=== PATIENT | female | born 1955 | race Caucasian/White ===

== ENCOUNTER 2021-01-14 10:36 | Emergency (ER) | payer MEDICARE, OTHER, SELFPAY ==
[2021-01-14 10:45] VITALS: BP 123/80; PULSE 108; RESP 16; TEMP 37.6; O2SAT 99
--- NOTE | 2021-01-14 11:09 | ED.URI ---
HPI - URI/Sore Throat General Chief Complaint: Upper Respiratory Infection Stated Complaint: COUGH/SORE THROAT Source: patient and RN notes reviewed Limitations: no limitations History of Present Illness HPI Narrative: The vaccinated patient, a non-smoker/nondrinker, presents with sore throat. Patient states she has a shorter couple day history of definite sore throat, mildly hoarse voice, and scant cough. She attributes onset from unwell grandchildren. No earache, congestion, fever measured, sputum changes; no CP, loss of taste/smell, S OB, vomiting/diarrhea Related Data Allergies Allergy/AdvReac Type Severity Reaction Status Date / Time morphine AdvReac Severe Vomiting Verified 07/07/19 20:15 Review of Systems Review of Systems: Narrative: General/Constitutional: No weight loss,fever Eyes: N0: Redness,discharge Ears/Nose/Throat: No: Epistaxis,ear discharge Respiratory: Denies: Hemoptysis Gastrointestinal: No Vomiting, Bleeding-rectal Skin: No Lumps, eruption Neurologic: No Focal Weakness,Sz Hematologic: Denies: Petechiae/Purpura Psychiatric: No: Suicida ideationl All Other Systems: Reviewed and Negative PMFSH Past Medical History Medical History (Updated 01/14/21 @ 12:44 by Cam Castillo MD) Left wrist fracture Surgical History Surgical History (Updated 07/07/19 @ 20:38 by Jailyn Oropeza) H/O left wrist surgery left wrist Fx repair with hardware Hx of tonsillectomy Social History Social History Smoking status: Never smoker Alcohol intake: never Gender identity (if verbalized by the patient): Female Comments At time of signature, agree with nursing past medical, surgical, social and family history. There is no relevant family history pertinent to the presenting complaint Exam Narrative: Exam Narrative: General Appearance: Well appearing, Well nourished EYE: PERRLA, Conjunctiva clear Ears: Auditory canal normal, TM normal Nose: Rhinorrhea, Mucousal erythema Mouth/Throat: MM moist, Uvula midline, Pharyngeal erythema Neck: Supple, No adenopathy Respiratory: No respiratory distress, Breath sounds equal, Clear to auscultation Cardiovascular: RRR, No JVD Musculoskeletal: Non tender, Normal strength Skin: Warm, Dry Neurological: A&O x3, CN II-XII intact Psychiatric: Normal mood, Normal affect Course Vital Signs Vital signs: Vital Signs Temperature 99.7 F H 01/14/21 10:45 Pulse Rate 108 H 01/14/21 10:45 Respiratory Rate 16 01/14/21 10:45 Blood Pressure 123/80 01/14/21 10:45 Pulse Oximetry 99 01/14/21 10:45 Temperature 99.7 F H 01/14/21 10:45 Pulse Rate 108 H 01/14/21 10:45 Respiratory Rate 16 01/14/21 10:45 Blood Pressure 123/80 01/14/21 10:45 Pulse Oximetry 99 01/14/21 10:45 Discharge Plan Discharge Clinical Impression: Upper respiratory infection Qualifiers: URI type: unspecified URI Qualified Code(s): J06.9 - Acute upper respiratory infection, unspecified Patient Disposition: Home, Self-Care Condition: Stable Instructions: Pharyngitis (ED) Prescriptions: New lidocaine HCl [Lidocaine Viscous] 2 % solution 5 ml MUCOUS MEM QID PRN (Reason: pain) Qty: 100 RF: 0 benzonatate [Tessalon Perles] 100 mg capsule 100 mg PO TID Qty: 20 RF: 1 azithromycin 250 mg tablet See Rx Instructions .ROUTE .COMPLEX Qty: 6 RF: 0 No Action ibuprofen [IBU] 600 mg tablet 600 mg PO Q6H PRN (Reason: pain) Qty: 20 RF: 0 Other Ambulatory Orders: SARS-CoV-2 RNA, Qual RT-PCR (Routine) Location: Determined by Patient Ordered By: Cam Castillo Follow-up/Referrals: Migue Carter MD [Primary Care Provider] -
== END 2021-01-14 11:18 | disposition home or self-care (01) ==
PROVIDERS: Emergency Provider Emergency Medicine; PCP Emergency Medicine
DX: J06.9 Acute upper respiratory infection, unspecified (principal)
CPT/HCPCS: 99213; G0463

== ENCOUNTER → 2021-01-17 06:32 | Outpatient (CLI) | payer MEDICARE, SELFPAY ==
[2021-01-18 13:49] LABS: SARS-CoV-2 RNA PCR Negative
== END ==
PROVIDERS: PCP Emergency Medicine; Visit Provider Emergency Medicine
DX: Z20.822 Contact with and (suspected) exposure to COVID-19 (principal); R09.89 Other specified symptoms and signs involving the circulatory and respiratory systems
CPT/HCPCS: C9803; U0003; U0005

== ENCOUNTER 2021-03-19 08:05 | Outpatient (CLI) | payer MEDICARE, SELFPAY ==
--- NOTE | ~2021-03-19 | MM_ITS ---
EXAMINATION: MM screening [facility] BI w aren HISTORY: Screening mammogram TECHNIQUE: Craniocaudal and mediolateral oblique 3-D tomosynthesis images were obtained and synthetic 2-D images were generated. CAD analysis was submitted and interpreted. COMPARISON: 07/20/2019, 07/14/2018, 07/12/2017 BREAST PARENCHYMAL COMPOSITION: There are scattered areas of fibroglandular density. FINDINGS: There is no evidence of suspicious mass, calcification, or architectural distortion to sugg est malignancy in either breast. There has been no suspicious interval change. IMPRESSION: 1. No mammographic evidence of malignancy. 2. Recommend routine screening mammography in one year. BI-RADS Category 1: Negative Reviewed, dictated and finalized at location A.
== END 2021-03-19 08:06 | disposition home or self-care (01) ==
LOC: ANHIMG 08:08
PROVIDERS: PCP Emergency Medicine; Visit Provider Emergency Medicine
DX: Z12.31 Encounter for screening mammogram for malignant neoplasm of breast (principal)
CPT/HCPCS: 77063; 77067

== ENCOUNTER 2022-01-13 20:31 | Emergency (ER) | payer MEDICARE, SELFPAY ==
--- NOTE | ~2022-01-13 | XR_ITS ---
EXAM: XR hip LT 2V w AP pelvis DATE: 01/13/2022 21:32 HISTORY: animal bite TODAY TO LT SIDE, BRUISING/ SWELLING/ PUNCTURES . COMPARISON: None available. FINDINGS: Normal mineralization. No fracture or dislocation. No lytic or blastic lesion. Mild bilate ral hip osteoarthritis. No erosion or periosteal change. Soft tissues within normal limits. IMPRESSION: No acute osseous finding in the pelvis or left hip. Reviewed, dictated and finalized at location K.
[2022-01-13 20:34] VITALS: BP 166/98; PULSE 96; RESP 18; TEMP 36.4; O2SAT 100
--- NOTE | 2022-01-13 21:41 | ED.ANIMALBIT ---
HPI - Animal Bite General Chief Complaint: Animal Bite Stated Complaint: dog bite Time Seen by Provider: 01/13/22 21:12 Source: RN notes reviewed History of Present Illness HPI narrative: Patient presents emergency department from home for animal bite. Patient states she was at a friend's house today's seen and some recent puppies were born this year and they over the mother came out and bit the patient several times in the left hip and the left lower abdomen. Per the patient the dog was not up-to-date on its shots but is owned by her friend she states she went home and took a hot bath but continued some pain and bruising came for further evaluation denies any fevers or chills numbness or tingling extremities or any other symptoms unsure of last tetanus shot Related Data Allergies Allergy/AdvReac Type Severity Reaction Status Date / Time morphine AdvReac Severe Vomiting Verified 07/07/19 20:15 Review of Systems Review of Systems: Gen.: Denies fevers or chills Musculoskeletal: Reports left thigh pain Neuro: Denies numbness, tingling, weakness Skin: See HPI Endo: Denies DM PMFSH Past Medical History Medical History Left wrist fracture Surgical History Surgical History (Updated 07/07/19 @ 20:38 by Jailyn Oropeza) H/O left wrist surgery left wrist Fx repair with hardware Hx of tonsillectomy Social History Social History Smoking status: Never smoker Alcohol intake: never Gender identity (if verbalized by the patient): Female Course Course Emergency Course: Discussed with patient as well as charge nursing staff patient will contact animal control tomorrow so the dog may be monitored for rabies we will hold rabies vaccine at this time as the dog whereabouts are known as a dog does live with her friend. Also sent to infectious control nurse Discussed with patient results of workup and diagnosis. Discussed need for follow-up with primary care, proper use of medication, and reasons to return to the emergency department. Patient understands and agrees to current treatment plan Vital Signs Vital signs: Vital Signs Temperature 97.6 F 01/13/22 20:34 Pulse Rate 96 01/13/22 20:34 Respiratory Rate 18 06/22/22 20:34 Blood Pressure 166/98 H 01/13/22 20:34 Pulse Oximetry 100 01/13/22 20:34 Oxygen Delivery Room Air 01/13/22 20:34 Temperature 97.6 F 01/13/22 20:34 Pulse Rate 96 01/13/22 20:34 Respiratory Rate 18 01/13/22 20:34 Blood Pressure 166/98 H 01/13/22 20:34 Pulse Oximetry 100 01/13/22 20:34 Oxygen Delivery Room Air 01/13/22 20:34 MDM - Animal Bite Imaging Data Radiologist's impression: ITS Impressions Hip/Pelvis X-Ray 01/13/22 21:44 IMPRESSION: No acute osseous finding in the pelvis or left hip. Discharge Plan Discharge Clinical Impression: Dog bite Patient Disposition: Home, Self-Care Condition: Stable Instructions: Antibiotic Form, Animal Bite (ED) Additional Instructions: Return for increasing pain numbness or tingling in extremities or any other symptoms or concern. You can contact your local animal control tomorrow to have them evaluate the dog that bit you and monitor for rabies Prescriptions: New amoxicillin-pot clavulanate 875-125 mg tablet 1 tablet PO Q12H Qty: 14 0RF ibuprofen [IBU] 600 mg tablet 600 mg PO Q6H PRN (Reason: pain) Qty: 20 0RF No Action lidocaine HCl [Lidocaine Viscous] 2 % solution 5 ml MUCOUS MEM QID PRN (Reason: pain) Qty: 100 0RF Rx Instructions: Gargle and spit benzonatate [Tessalon Perles] 100 mg capsule 100 mg PO TID Qty: 20 1RF azithromycin 250 mg tablet See Rx Instructions .ROUTE .COMPLEX Qty: 6 0RF Rx Instructions: take 500 mg today (day 1), then 250 mg for 4 days (days 2-5) ibuprofen [IBU] 600 mg tablet 600 mg PO Q6H PRN (Reas
[2022-01-13] MEDS: TETANUS,DIPHTHERIA,AC PERTUSSIS ADULT (0.5 ML) BOOSTRIX IM (22:06)
[2022-01-13] MEDS: ACETAMINOPHEN 500 MG TABLET 1000 MG PO (22:06)
[2022-01-13] MEDS: AMOXICILLIN/CLAVULANATE K 875-125 MG TAB 1 TABLET PO (22:07)
== END 2022-01-13 22:15 | disposition home or self-care (01) ==
PROVIDERS: Emergency Provider Emergency Medicine; PCP Emergency Medicine
DX: S71.052A Open bite, left hip, initial encounter (principal); S31.159A Open bite of abdominal wall, unspecified quadrant without penetration into peritoneal cavity, initial encounter; W54.0XXA Bitten by dog, initial encounter; Z23 Encounter for immunization
CPT/HCPCS: 73502; 90471; 90715; 99283; A9270

== ENCOUNTER 2022-05-31 07:41 | Outpatient (CLI) | payer MEDICARE, SELFPAY ==
--- NOTE | ~2022-05-31 | MM_ITS ---
EXAMINATION: MM screening [facility] BI w aren HISTORY: Screening mammogram TECHNIQUE: Craniocaudal and mediolateral oblique 3-D tomosynthesis images were obtained and synthetic 2-D images were generated. CAD analysis was submitted and interpreted. COMPARISON: 03/19/2021, 07/20/2019, 07/14/2018 bilateral screening mammogram examinations BREAST PARENCHYMAL COMPOSITION: There are scattered areas of fibroglandular density. FINDINGS: There is a biopsy marker in the left breast; history of prior benign left breast biopsy. Th ere is no evidence of suspicious mass, calcification, or architectural distortion to suggest malignan cy in either breast. There has been no suspicious interval change. IMPRESSION: 1. No mammographic evidence of malignancy. 2. Recommend routine screening mammography in one year. BI-RADS Category 1: Negative Reviewed, dictated and finalized at location A. HEALTH PROVIDER
== END 2022-05-31 07:42 | disposition home or self-care (01) ==
LOC: ANHIMG 07:43
PROVIDERS: PCP Emergency Medicine; Visit Provider Emergency Medicine
DX: Z12.31 Encounter for screening mammogram for malignant neoplasm of breast (principal)
CPT/HCPCS: 77063; 77067

== ENCOUNTER 2022-07-28 12:33 | Outpatient (CLI) | payer MEDICARE, SELFPAY ==
--- NOTE | ~2022-07-28 | DEXA_ITS ---
Bone Density Report Name: SABI GONZALEZ Age: 66 Sex: Female Ethnicity: White Date of : 1955 Indication: postmenopausal; screening for osteoporosis; height loss; Referring Provider: HOLLY BANKS Study: Bone densitometry was performed. Exam Date: July 28, 2022 Accession number: [id number] Bone Density: Region BMD T-score Z-score Classification AP Spine(L1-L4) 0.882 -1.5 0.5 Osteopenia Femoral Neck (Left) 0.755 -0.8 0.9 Normal Total Hip (Left) 0.849 -0.8 0.7 Normal Femoral Neck (Right) 0.790 -0.5 1.2 Normal Total Hip (Right) 0.834 -0.9 0.6 Normal Total Hip Mean 0.841 -0.9 0.7 Normal World Health Organization criteria for BMD impression classify patients as: Normal (T-score at or above -1.0), Osteopenia (T-score between -1.0 and -2.5), or Osteoporosis (T-score at or below -2.5). 10-year Fracture Risk(1): Major Osteoporotic Fracture 8.3% Hip Fracture 0.7% Reported Risk Factors: [place] (), Neck BMD=0.755, BMI=29.0 (1) FRAX(R) Version 3.08. Fracture probability calculated for an untreated patient. Fracture probability may be lower if the patient has received treatment. Clinical Information Provided by Patient: Has used the following medications: Vitamin D Patient maximum height was 66 Menopause Age: 53 Onset of menses at age 11 Number of children 2 Impression: The patient has low bone mass, based on the Total Spine T-score. The patient has an estimated ten-year risk of hip fracture of 0.7% and an estimated ten-year risk of major fracture of 8.3%, based on the WHO FRAX algorithm. Discussion: BONE DENSITY IS LOW AT ONE OR MORE SKELETAL SITES. This patient's lowest T-score is low at one or more skeletal sites. It meets the World Health Organization's (WHO) criteria for ?low bone mass? (T-score between -1.0 and -2.5). The patient's 10-year risk of fracture as calculated by FRAX is less than the threshold where pharmacological therapy is recommended by the National Osteoporosis Foundation (NOF). However, all treatment decisions require clinical judgment and consideration of individual patient factors, including patient preferences, comorbidities, previous drug use, risk factors not captured in the FRAX model (e.g., frailty, falls, vitamin D deficiency, increased bone turnover, interval significant decline in bone density) and possible under or overestimation of fracture risk by FRAX. The patient should follow a healthful lifestyle (good nutrition with adequate calcium and vitamin D, and appropriate weight-bearing exercise). Follow-Up: Consider repeating this study in 2 to 3 years to reassess this patient's status, or sooner if there is some new clinical indication. Reported by: [facility] on 07/28/2022 1:12:00 PM.
== END 2022-07-28 12:34 | disposition home or self-care (01) ==
LOC: ANHIMG 12:34
PROVIDERS: PCP Emergency Medicine; Visit Provider Emergency Medicine
DX: Z78.0 Asymptomatic menopausal state (principal); M85.88 Other specified disorders of bone density and structure, other site
CPT/HCPCS: 77080

== ENCOUNTER 2023-02-24 09:06 | Day surgery (SDC) | payer MEDICARE, SELFPAY ==
[2023-02-09 13:12] VITALS: BMI 28.2
[2023-02-15 14:37] VITALS: BMI 27.7
[2023-02-24 09:28] VITALS: BP 131/89; PULSE 79; RESP 16; O2SAT 99
--- NOTE | 2023-02-24 10:11 | WPDANESEPPF ---
Anes - Initial Pre Proc Eval Procedure: Operation Date: 02/24/23 11:00 Proposed Procedures p Diagnostic Colonoscopy - Anders Witt MD Date/Time: 02/24/23 10:11 Surgeon: Anders Witt MD Pre Op Diagnosis: History of Colon Polyps Patient Data Age: 67 Gender: F Height: 1.68 m Weight: 78 kg Last Vital Signs Pulse 79 02/24/23 09:28 Resp 16 02/24/23 09:28 BP 131/89 02/24/23 09:28 Pulse Ox 99 02/24/23 09:28 O2 Del Method Room Air 02/24/23 09:28 Allergies Allergy/AdvReac Type Severity Reaction Status Date / Time morphine AdvReac Severe Vomiting Verified 02/15/23 14:35 Home Medications Medication Instructions Recorded Confirmed Type No Home Medications 02/15/23 02/15/23 History Patient hx anesthesia problems: none Family hx anesthesia problems: none Results Review: All pre-operative results and documents have been reviewed as part of the pre-operative evaluation. COUNTS INCLUDE 234 BEDS AT THE [facility] Past Medical History Medical History Left wrist fracture Surgical History Surgical History H/O left wrist surgery left wrist Fx repair with hardware Hx of tonsillectomy Social History Social History Smoking status: Never smoker Alcohol intake: never Substance use: never Substance use type: does not use Living arrangements: alone Gender identity (if verbalized by the patient): Female Spiritual care concerns: No Anes - Eval Final PreProcedure Day of Procedure 02/24/23 10:11 Patient weight: normal Heart: regular rate and rhythm Lungs: clear to auscultation Airway: Mallampati scale class II Neurological: alert and oriented Last oral intake: >/= 8 hours ASA classification: II Emergent: no Anesthetic plan: proceed Anesthesia type and monitoring: general GIVS and standard monitoring Results Review: All pre-operative results and documents have been reviewed as part of the pre-operative evaluation. Informed Consent: The patient's anesthetic plan and its attendant risks and benefits were discussed with the patient/family/POA. Questions were solicited and answers provided to the satisfaction of the patient/family/POA.
[2023-02-24] MEDS: LACTATED RINGERS 1,000 ML 150 ML IV CONT (10:21)
--- NOTE | 2023-02-24 10:24 | PM.HPGS ---
History of Present Illness History of Present Illness Consent: Risks, benefits, and alternatives have been discussed and questions answered. Patient agrees to proceed with procedure. Chief complaint: History of Colon Polyps Narrative: Litzy Fay is a 67 year old female with colon polyp 5 years ago Review of Systems Constitutional: Constitutional: Denies headache(s) and Denies weakness Eyes: Eyes: Denies blurry vision ENT: Reports Normal hearing present, Denies headache(s) and Denies neck pain Cardiovascular: Cardiovascular: Denies chest pain and Denies dyspnea Respiratory: Respiratory: Denies dyspnea Gastrointestinal: Gastrointestinal: Reports no additional gastrointestinal complaints Genitourinary: Genitourinary: Denies dysuria Musculoskeletal: Musculoskeletal: Denies neck pain Integumentary/Breasts: Skin/Breast: Denies dry skin Neurologic: Reports Normal hearing present, Denies headache(s) and Denies weakness Psychiatric: Psychiatric: Denies anxiety Endocrine: Endocrine: Denies change in body appearance Hematologic/Lymphatic: Hematologic/Lymphatic: Denies easy bleeding Allergic/Immunologic: Allergic/Immunologic: Denies urticaria PMFSH Past Medical History Medical History (Updated 02/24/23 @ 10:24 by Anders Witt MD) Adenomatous colon polyp Left wrist fracture Surgical History Surgical History H/O left wrist surgery left wrist Fx repair with hardware Hx of tonsillectomy Social History Social History Smoking status: Never smoker Alcohol intake: never Substance use: never Substance use type: does not use Living arrangements: alone Gender identity (if verbalized by the patient): Female Spiritual care concerns: No Meds Home Medications and Allergies Home Medications Medication Instructions Recorded Confirmed Type No Home Medications 02/15/23 02/15/23 History Allergies Allergy/AdvReac Type Severity Reaction Status Date / Time morphine AdvReac Severe Vomiting Verified 02/15/23 14:35 Vital Signs Vital Signs - 24 hr 02/24/23 09:28 Pulse Rate 79 Respiratory Rate 16 Blood Pressure 131/89 Pulse Oximetry 99 Oxygen Delivery Room Air Exam Const: General: comfortable and no acute distress HENMT: Face/Nose/Sinus: Normal nares present Eyes: General: appearance normal, both eyes and all related structures Neck: Neck: no JVD Resp: Auscultation: clear to auscultation bilaterally Cardio: Rate: regular rate Rhythm: regular rhythm GI: Inspection: non-distended GI Palp: Yes Soft to palpation Skin: General skin exam: normal color Neuro: General: gait normal Speech: normal speech Extrem: General: normal to inspection Psych: Mental Status: mental status grossly normal Assessment and Plan Assessment and plan (1) Adenomatous colon polyp: Code(s): D12.6 - Benign neoplasm of colon, unspecified Status: Acute Assessment and Plan: colonoscopy
[2023-02-24 10:40] VITALS: BP 91/60; PULSE 87; RESP 18; O2SAT 95
[2023-02-24 10:50] VITALS: BP 103/72; PULSE 88; RESP 14; O2SAT 98
[2023-02-24 11:00] VITALS: BP 117/74; PULSE 76; RESP 16; O2SAT 98
--- NOTE | 2023-02-24 11:01 | WPDANESPN ---
Anes - Prog Note Post-Op Date/Time: 02/24/23 11:01 Cardiovascular status: normal Respiratory status: normal Airway patency: baseline Mental status: baseline Post-Op hydration status: normal Vital Signs: Last Vital Signs Pulse 88 02/24/23 10:50 Resp 14 02/24/23 10:50 BP 103/72 02/24/23 10:50 Pulse Ox 98 02/24/23 10:50 O2 Del Method Room Air 02/24/23 10:50 Pain Score (VAS): 0/10 I/O: Intake & Output 02/23/23 02/24/23 02/24/23 23:59 07:59 15:59 Intake Total 500 Balance 500 Patient Feedback: Patient satisfied with anesthetic care.
== END 2023-02-24 11:15 | disposition home or self-care (01) ==
PROVIDERS: PCP Emergency Medicine; Visit Provider Internal Medicine Gastroenterology
PROC: 0DJD8ZZ Inspection of Lower Intestinal Tract, Via Natural or Artificial Opening Endoscopic (ICD-10-PCS; CPT 45378; principal; 2023-02-24 11:00)
DX: Z86.010 Personal history of colon polyps (principal); K57.30 Diverticulosis of large intestine without perforation or abscess without bleeding; K64.8 Other hemorrhoids
CPT/HCPCS: 45378

== ENCOUNTER 2024-02-22 14:50 | Outpatient (CLI) | payer MEDICARE, SELFPAY ==
--- NOTE | ~2024-02-22 | MM_ITS ---
EXAMINATION: MM screening [facility] BI w aren HISTORY: Screening TECHNIQUE: Craniocaudal and mediolateral oblique 3-D tomosynthesis images were obtained and synthetic 2-D images were generated. CAD analysis was submitted and interpreted. COMPARISON: Comparison to multiple prior studies sequentially, with oldest reviewed study dated 06/24. BREAST PARENCHYMAL COMPOSITION: Not dense: There are scattered areas of fibroglandular density. FINDINGS: There is no evidence of suspicious mass, calcification, or architectural distortion to sugg est malignancy in either breast. There has been no suspicious interval change. IMPRESSION: 1. No mammographic evidence of malignancy. 2. Recommend routine screening mammography in one year. BI-RADS Category 1: Negative Reviewed, dictated and finalized at location B.
== END 2024-02-22 14:51 | disposition home or self-care (01) ==
LOC: ANHIMG 14:51
PROVIDERS: PCP Emergency Medicine; Visit Provider Emergency Medicine
DX: Z12.31 Encounter for screening mammogram for malignant neoplasm of breast (principal)
CPT/HCPCS: 77063; 77067

== ENCOUNTER 2024-07-16 13:32 | Outpatient (CLI) | payer MEDICARE, SELFPAY ==
--- NOTE | ~2024-07-16 | US_ITS ---
EXAMINATION: US thyroid DATE: 07/16/2024 13:55 INDICATION: Danica's thyroiditis. TECHNIQUE: Multiple ultrasound images of the thyroid were obtained. COMPARISON: None. FINDINGS: The right thyroid lobe measures 4.8 x 1.4 x 1.0 cm. The left thyroid lobe measures 3.5 x 1.1 x 0.8 c m. There is slightly heterogeneous echotexture and normal echogenicity throughout the thyroid gland. No discrete nodules identified. Normal vascular flow is present. IMPRESSION: Slightly heterogeneous thyroid gland, consistent with the given history of Danica's thyroiditis. Reviewed, dictated and finalized at location K. CARRIER INSPECTOR IMPRESSION: Slightly heterogeneous thyroid gland, consistent with the given history of Hash imoto's thyroiditis.
== END 2024-07-16 13:33 | disposition home or self-care (01) ==
PROVIDERS: PCP Emergency Medicine; Visit Provider Emergency Medicine
DX: E06.3 Autoimmune thyroiditis (principal)
CPT/HCPCS: 76536